=== PATIENT | female | born 1970 | race African-American/Black ===

== ENCOUNTER 2017-09-26 18:08 | Emergency (ER) | payer OTHER ==
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
== END 2017-09-26 20:48 | disposition home or self-care (01) ==
LOC: ER 18:08
DX: R07.9 Chest pain, unspecified (principal); V49.59XA Passenger injured in collision with other motor vehicles in traffic accident, initial encounter
CPT/HCPCS: 71046; 99284

== ENCOUNTER 2020-01-20 02:33 | Emergency (ER) | payer OTHER ==
--- OUTSIDE RECORDS SUMMARY | 2020-01-20 02:35 | XMS REPORT | Continuity of Care Document ---
:1970 Author Organization [facility] t Address [address] [place] [address] Care Team Providers Name Role Phone Tiff MERIDA Attending Clinician Lab, Fam Pob I Attending Clinician Unavailable Problems This patient has no known problems. Allergies, Adverse Reactions, Alerts This patient has no known allergies or adverse reactions. Medications This patient has no known medications. Procedures This patient has no known procedures. Encounters Start End Encounter Admission Attending Care Care Encounter Source Date/Time Date/Time Type Type Clinicians Facility Department ID 2019-11-16 2019-11-16 Telephone Tiff [facility] [id number] 00:00:00 00:00:00 [facility] [id number] [place] [id number] Professio [phone] nal [address] 2019-11-14 2019-11-14 Laboratory Lab, [facility] [id number] 09:47:58 09:52:10 Only Fam Pob I Health [id number] [place] [id number] Professio [phone] nal 0[address] One Results This patient has no known results.
--- OUTSIDE RECORDS SUMMARY | 2020-01-20 02:36 | XMS REPORT | Summary of Care ---
:1970 Author Organization [facility] Address [address] [place] [id number] Care Team Providers Name Role Phone Mal Dash Primary Care Provider Reason for Visit Reason Comments Exposure Encounter Details Date Type Department Care Team Description 11/14/2019 Laboratory Only [facility] Family Anastasia Matthew, ECOLOGICAL TECHNICAL OFFICER [address] [address] Exposure to Covid-19 Medicine - [facility] Fam Pob I Virus [address] [place] [address] Allergies No Known Allergiesdocumented as of this encounter (statuses as of 11/14/2019) Medications Medication Sig Dispensed Refills Start Date End Date Status amLODIPine (NORVASC) 10 Take 10 mg by 0 Active mg tablet mouth daily. nateglinide (STARLIX) 60 Take 60 mg by 0 Active mg tablet mouth 3 (three) times daily before meals. aspirin 81 mg chewable Take 81 mg by 0 Active tablet mouth daily. glyBURIDE (DIABETA) 2.5 Take 2.5 mg by 0 Active mg tablet mouth 2 (two) times daily with meals. metFORMIN (GLUCOPHAGE) Take 500 mg by 0 Active 500 mg tablet mouth 2 (two) times daily with meals. hydrochlorothiazide Take 25 mg by 0 Active (ESIDRIX) 25 mg tablet mouth daily. docusate (COLACE) 100 mg Take 1 Cap by 40 Cap 0 11/25/2014 Active capsule mouth 2 (two) times daily. ondansetron (ZOFRAN) 4 mg Take 1 Tab by 10 Tab 0 11/27/2014 Active tablet mouth every 8 (eight) hours as needed for Nausea and Vomiting (N/V) for up to 10 doses. cyclobenzaprine Take 1 Tab by 60 Tab 0 02/07/2015 Active (FLEXERIL) 5 mg mouth 2 (two) tabletIndications: times daily. Pseudotumor cerebri syndrome linaclotide (LINZESS) 145 Take 145 mcg by 0 Active mcg Cap mouth daily. metoprolol succinate XL Take 25 mg by 0 Active (TOPROL XL) 25 mg 24 hr mouth daily. tablet ferrous sulfate 325 mg Take 325 mg by 0 Active (65 mg iron) tablet mouth 3 (three) times daily with meals. Tramadol (RYBIX ODT) 50 Take 1 tablet 20 tablet 0 10/17/2015 Active mg tabletIndications: by mouth as Right shoulder pain needed for Pain (scale 1-3), Pain (scale 4-6) or Pain (scale 7-10). topiramate 25 mg Take 1 tablet 60 tablet 2 07/07/2016 Active tabletIndications: by mouth 2 Pseudotumor cerebri (two) times syndrome daily. albuterol 90 Inhale 2 Puffs 8.5 g 0 05/12/2017 A ctive mcg/actuation inhaler every 4 (four) hours as needed for Wheezing or Shortness of Breath. ketotifen 0.025 % (0.035 Place 1 Drop in 0 Active %) ophthalmic solution both eyes as needed. documented as of this encounter (statuses as of 11/14/2019) Active Problems Problem Noted Date Low vision, both eyes 10/01/2015 Refractive error 05/30/2015 Diabetic macular edema, both eyes 05/30/2015 Proliferative diabetic retinopathy of both eyes 2015 Pseudotumor cerebri 11/20/2014 Optic disc pallor, bilateral 11/01/2014 Hypertensive retinopathy of both eyes 11/01/2014 Proliferative diabetic retinopathy without macular latosha ma associated with 10/31/2014 type 2 diabetes mellitus Pseudotumor cerebri syndrome 10/31/2014 Papilledema 10/21/2014 ERM OD (epiretinal membrane, right eye) 10/21/2014 Blurry vision, bilateral 10/19/2014 documented as of this encounter (statuses as of 11/14/2019) Social History Tobacco Use Types Packs/Day Years Used Date Current Every Day Smoker Cigarettes 0.25 23 Sta rted: 10/31/1992 Smokeless Tobacco: Never Used Alcohol Use Drinks/Week oz/Week Comments Yes social Sex Assigned at Date Recorded Not on file Job Start Date Occupation Industry Not on file Not on file Not on file Travel History Travel Start Travel End No recent travel history available. documented as of this encounter Last Filed Vital Signs Not on filedocumented in this encounter Plan of Treatment Name Type Priority Associated Diagnoses Order S chedule COVID-19 (PCR MOLECULAR LAB Routine Exposure to Covid -19 Expected: 11/14/2019, TESTING) Virus Expires: 2020 Health Maintenance Due Date Last Done Comments PNEUMOCOCCAL 0-64 YEARS COMBINED 1978 SERIES (1 of 1 - PPSV23) URINE MICROALBUMIN 1982 DTaP,Tdap,and Td Vaccines (1 - 1983 Tdap) Depression Screening 1984 FOOT EXAM 1990 PAP SMEAR 1993 Breast Cancer Screening 2012 (MAMMOGRAM) INFLUENZA VACCINE (#1) 2020 HgA1C 05/11/2020 11/09/2019, 10/19/2014 EYE EXAM 07/10/2020 07/11/2019, 07/11/2019, 04/11/2019, Additional history exists CREATININE (SERUM) 11/08/2020 11/09/2019, 08/09/2016, 03/29/2016, Additional history exists LDL-C 11/08/2020 11/09/2019, 10/19/2014 documented as of this encounter Implants Implanted Type Area Lamp Developer Device Identifier Shelf Exp iration Model / Date Serial / L ot Shunt Strata Nsc Lp Closed Tip Medtronic #[id number] - Sn/A Medtronic 07/06/2018 [id number] / Implanted: Qty: 1 on 11/22/2014 by Omar Zarco MD at [facility] N/A / [id number] documented as of this encounter Results Not on filedocumented in this encounter Visit Diagnoses Diagnosis Exposure to Covid-19 Virus documented in this encounter Additional Health Concerns Infection Onset Date Last Indicated Resolved Time COVID-19 Rule Out 11/14/2019 11/14/2019 documented as of this encounter Insurance Payer Benefit Plan / Subscriber ID Effective Dates Phone Addre ss Type Group AETNA ALLIED BENEFIT [id number] 2017-Sumit PPO nt MEDICARE MEDICARE PART xxxxxxxxxxx 2016-Messi [phone] [address] Medicare A & B t 2 [id number] BESS [place] [phone] documented as of this encounter
--- OUTSIDE RECORDS SUMMARY | 2020-01-20 02:36 | XMS REPORT | Summary of Care ---
:1970 Author Organization [facility] Address [address] [place] [address] Care Team Providers Name Role Phone Mal Dash Primary Care Provider Encounter Details Date Type Department Care Team Description 11/09/2019 Orders Only [facility] Doctor Unassigned, No [address] [facility] [place] [address] [address] [place] [address] Allergies No Known Allergiesdocumented as of this encounter (statuses as of 11/09/2019) Medications Medication Sig Dispensed Refills Start Date [...] as of this encounter (statuses as of 11/09/2019) Active Problems Problem Noted Date Low vision, [...] as of this encounter (statuses as of 11/09/2019) Social History Tobacco Use Types Packs/Day Years [...] filedocumented in this encounter Plan of Treatment Date Type Specialty Care Team Description 11/09/2019 Tactical Debriefer Officer Visit Phlebotomy Pob, Adc Lab Main Health Maintenance Due Date Last Done Comments PNEUMOCOCCAL 0-64 YEARS COMBINED 1978 SERIES (1 of 1 - PPSV23) URINE MICROALBUMIN 1982 DTaP,Tdap,and Td Vaccines (1 - 1983 Tdap) Depression Screening 1984 FOOT EXAM 1990 PAP SMEAR 1993 Breast Cancer Screening 2012 (MAMMOGRAM) HgA1C 04/20/2015 10/19/2014 LDL-C 10/20/2015 10/19/2014 CREATININE (SERUM) 08/09/2017 08/09/2016, 03/29/2016, 07/03/2015, Additional history exists INFLUENZA VACCINE (#1) 2020 EYE EXAM 07/10/2020 07/11/2019, 07/11/2019, 04/11/2019, Additional history exists documented as of this encounter Implants Implanted Type Area Bill Checker Device Identifier Shelf Exp iration Model / Date Serial / L ot Shunt Strata Nsc Lp Closed Tip Medtronic #[id number] - Sn/A Medtronic 07/06/2018 [id number] / Implanted: Qty: 1 on 11/22/2014 by Omar Zarco MD at [facility] N/A / [id number] documented as of this encounter Procedures Procedure Name Priority Date/Time Associated Diagnosis Comme nts ASSIGNMENT OF BENEFITS Routine 11/09/2019 8:13 AM CDT documented in this encounter Results Not on filedocumented in this encounter Insurance Payer Benefit Plan / Subscriber ID Effective Dates Phone Addre ss Type Group AETNA ALLIED BENEFIT [id number] 2017-Sumit PPO nt MEDICARE MEDICARE PART xxxxxxxxxxx 2016-Messi [phone] [address] Medicare A & B t 2 [id number] BESS BEDOY[place] [id number] documented as of this encounter
--- OUTSIDE RECORDS SUMMARY | 2020-01-20 02:36 | XMS REPORT | Summary of Care ---
:1970 Author Organization [facility] Address [address] [place] [address] Care Team Providers Name Role Phone Mal Dash Primary Care Provider Reason for Visit Reason Comments LAB WORK Auth/Cert Status Reason Specialty Diagnoses / Procedures Referred By Lowell louis Referred To Contact Phlebotomy Diagnoses ROUTINE Adc Pob Lab Draw Procedures CBC HEPATIC FUNCTION PANEL LIPID PANELW/REFLEX BMP TSH+FREE T4 HEMOGLOBIN A1C Professional Office Building [address] , [address] [place] [address] Phone: Fax: Encounter Details Date Type Department Care Team Description 11/09/2019 Tele Tech Visit [facility] Jitendra Garcia MD [address] [facility] [address] [place] [address] Routine general Professional Office Pob, Adc Lab Main medical examination Building Phlebotomy at a [facility] care Lab facility (Primary Professional Office Dx) [address] [facility] [address], [address] [place] [address] Allergies No Known Allergiesdocumented as of this [...] of Treatment Name Type Priority Associated Diagnoses Date/Ti me CBC WITH DIFF LAB Routine Routine general medical 07/2019 8:46 AM examination at a health T care facility HEPATIC FUNCTION PANEL LAB Routine Routine general me dical 11/09/2019 8:46 AM ([id number]) (ALB,T.PRO,BILI examination at a health T T,BU/BC,ALT,AST,ALK PHOS) care facility LIPID PANEL ([id number])(TOTAL LAB Routine Routine general medical 11/09/2019 8:46 AM CHOLESTEROL, examination at a [facility] TRIGLYCERIDES, HDL) care facility BASIC METABOLIC PANEL LAB Routine Routine general med ical 11/09/2019 8:46 AM (NA, K, CL, CO2, GLUCOSE, examination at a health [facility] BUN, CREATININE, CA) care facility THYROID STIMULATING LAB Routine Routine general medic al 11/09/2019 8:46 AM HORMONE examination at a health T care facility FREE T4 LAB Routine Routine general medical 07/2019 8:46 AM examination at a [facility] care facility GLYCOSYLATED HEMOGLOBIN LAB Routine Routine general m edical 11/09/2019 8:46 AM (A1C) examination at a [facility] care facility CBC WITH DIFFERENTIAL LAB Routine Routine general med ical 11/09/2019 8:46 AM examination at a health T care facility Name Type Priority Associated Diagnoses Order S chedule CBC WITH DIFF LAB Routine Routine general medical Exp ected: 11/09/2019, examination at a health Expi res: 11/08/2020 care facility HEPATIC FUNCTION PANEL LAB Routine Routine general me dical Expected: 11/09/2019, ([id number]) (ALB,T.PRO,BILI examination at a health Expires: 11/08/2020 T,BU/BC,ALT,AST,ALK PHOS) care facility LIPID PANEL ([id number])(TOTAL LAB Routine Routine general medical Expected: 11/09/2019, CHOLESTEROL, examination at a health Expi res: 11/08/2020 TRIGLYCERIDES, HDL) care facility BASIC METABOLIC PANEL (NA, LAB Routine Routine genera l medical Expected: 11/09/2019, K, CL, CO2, GLUCOSE, BUN, examination at a health Expires: 11/08/2020 CREATININE, CA) care facility THYROID STIMULATING LAB Routine Routine general medic al Expected: 11/09/2019, HORMONE examination at a health Expi res: 11/08/2020 care facility FREE T4 LAB Routine Routine general medical Expe cted: 11/09/2019, examination at a health Expi res: 11/08/2020 care facility GLYCOSYLATED HEMOGLOBIN LAB Routine Routine general m edical Expected: 11/09/2019, (A1C) examination at a health Expi res: 11/08/2020 care facility Health Maintenance Due Date Last Done Comments [...] of this encounter Implants Implanted Type Area Farm Management Professor Device Identifier Shelf Exp iration Model / Date Serial / L ot Shunt Strata Nsc Lp Closed Tip Medtronic #[id number] - Sn/A Medtronic 07/06/2018 [id number] / Implanted: Qty: 1 on 11/22/2014 by Omar Zarco MD at [facility] N/A / [id number] documented as of this encounter Results Not on filedocumented in this encounter Visit Diagnoses Diagnosis Routine general medical examination at a health care facility - Primary documented in this encounter Insurance Payer Benefit Plan / Subscriber ID Effective Dates Phone Addre ss Type Group AETNA ALLIED BENEFIT [id number] 2017-Sumit PPO nt MEDICARE MEDICARE PART xxxxxxxxxxx 2016-Messi [phone] [address] Medicare A & B t 2 [id number] BESS [place]ED[place] [phone] documented as of this encounter
--- OUTSIDE RECORDS SUMMARY | 2020-01-20 02:36 | XMS REPORT | Summary of Care ---
:1970 Author Organization [facility] - [facility] Address [address] [place] [id number] Care Team Providers Name Role Phone Mal Dash Primary Care Provider Reason for Visit Reason Comments Lab Results POSITIVE COVID 19 Encounter Details Date Type Department Care Team Description 11/16/2019 Telephone [facility] Anastasia Alvarez FNP Lab Results (POSITIVE Medicine - [place] [address] COVID 19 ) [address] [id number] Allergies No Known Allergiesdocumented as of this encounter (statuses as of 11/16/2019) Medications Medication Sig Dispensed Refills Start Date [...] as of this encounter (statuses as of 11/16/2019) Active Problems Problem Noted Date Low vision, [...] as of this encounter (statuses as of 11/16/2019) Social History Tobacco Use Types Packs/Day Years [...] filedocumented in this encounter Plan of Treatment Health Maintenance Due Date Last Done Comments [...] of this encounter Implants Implanted Type Area Soft Tile Setter Device Identifier Shelf Exp iration Model / Date Serial / L ot Shunt Strata Nsc Lp Closed Tip Medtronic #[id number] - Sn/A Medtronic 07/06/2018 [id number] / Implanted: Qty: 1 on 11/22/2014 by Omar Zarco MD at [facility] N/A / [id number] documented as of this encounter Results Not on filedocumented in this encounter Additional Health Concerns Infection Onset Date Last Indicated Resolved Time COVID-19 Rule Out 11/14/2019 11/14/2019 11/16/2019 6: 00 PM CDT COVID-19 Confirmed 11/14/2019 11/14/2019 documented as of this encounter Insurance Payer Benefit Plan / Subscriber ID Effective Dates Phone Addre ss Type Group [employer] ALLIED BENEFIT [id number] 2017-Prese PPO nt MEDICARE MEDICARE PART xxxxxxxxxxx 2016-Messi [phone] [address] Medicare A & B t 2 [id number] BESS [place] [phone] documented as of this encounter
--- OUTSIDE RECORDS SUMMARY | 2020-01-20 02:36 | XMS REPORT | Summary of Care ---
:1970 Author Organization [facility] Address [address] [place] [id number] Care Team Providers Name Role Phone Mal Dash Primary Care Provider Reason for Visit Reason Comments Exposure Encounter Details Date Type Department Care Team Description 11/14/2019 Laboratory Only [facility] Family Anastasia Matthew, HYDRAULIC MINER BLASTING [address] [phone] Exposure to Covid-19 Medicine - [facility] Fam Pob I Virus [address] [place] [address] Allergies No Known Allergiesdocumented as [...] of this encounter Implants Implanted Type Area Director Customer Device Identifier Shelf Exp iration Model / Date Serial / L ot Shunt Strata Nsc Lp Closed Tip Medtronic #[id number] - Sn/A Medtronic 07/06/2018 [id number] / Implanted: Qty: 1 on 11/22/2014 by Omar Zarco MD at [facility] N/A / [id number] documented as of this encounter Results Not on filedocumented in this encounter Visit Diagnoses Diagnosis Exposure to Covid-19 Virus documented in this encounter Insurance Payer Benefit Plan / Subscriber ID Effective Dates Phone Addre ss Type Group AETNA ALLIED BENEFIT [id number] 2017-Sumit PPO nt MEDICARE MEDICARE PART xxxxxxxxxxx 2016-Messi [phone] [address] Medicare A & B t 2 [id number] BESS B[place] [phone] documented as of this encounter
[2020-01-20 03:09] LABS: Absolute Lymphocytes (CBC) 1.2 K/uL (0.7-4.9); Hematocrit 39.7 % (36.0-45.0); Lymphocytes % 13.2 % (15.3-44.8); MPV 7.6 fL (7.6-11.3); RBC Red Blood Cell Count 4.52 M/uL (3.86-4.86)
[2020-01-20 03:23] LABS: Potassium 3.3 mmol/L (3.5-5.1)
[2020-01-20] MEDS ORDERED: MEPERIDINE HCL 50 MG/ML ONE (03:39)
[2020-01-20] MEDS ORDERED: NA CHLORIDE 0.9% 500 ML ONE (03:54)
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
[2020-01-20 05:10] VITALS: TEMP 97.6
[2020-01-20 05:12] VITALS: BP 129/78; O2SAT 95
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
== END 2020-01-20 04:31 | disposition home or self-care (01) ==
LOC: ER 02:33
DX: S16.1XXA Strain of muscle, fascia and tendon at neck level, initial encounter (principal); S70.01XA Contusion of right hip, initial encounter; V49.50XA Passenger injured in collision with unspecified motor vehicles in traffic accident, initial encounter; I10 Essential (primary) hypertension; E11.9 Type 2 diabetes mellitus without complications; F17.210 Nicotine dependence, cigarettes, uncomplicated; Z98.2 Presence of cerebrospinal fluid drainage device
CPT/HCPCS: 96361; 85025; 80048; 36415; 82565; 70450; 71250; 72125; 73502; 96374; 99284; J2175; J7040; G0390